=== PATIENT | female | born 1950 | race Caucasian/White ===

== ENCOUNTER → 2017-12-09 | Outpatient (CLI) | payer MEDICARE | LOC: MC.RAD 10:55 | DX: Z12.31 Encounter for screening mammogram for malignant neoplasm of breast (principal) ==

== ENCOUNTER → 2018-02-16 | Outpatient (CLI) | payer MEDICARE | LOC: COL.RAD 14:41 | DX: M65.242 Calcific tendinitis, left hand (principal); M19.042 Primary osteoarthritis, left hand; Z87.828 Personal history of other (healed) physical injury and trauma; Z98.890 Other specified postprocedural states ==

== ENCOUNTER → 2021-05-01 | Outpatient (CLI) | payer MEDICARE | LOC: MC.RAD 03-28 10:45 | DX: Z12.31 Encounter for screening mammogram for malignant neoplasm of breast (principal); N63.20 Unspecified lump in the left breast, unspecified quadrant ==

== ENCOUNTER 2023-07-23 08:29 | Outpatient (RCR) | payer MEDICARE | END 2023-08-09 | disposition home or self-care (01) | LOC: WSST | DX: R47.1 Dysarthria and anarthria (principal); C02.9 Malignant neoplasm of tongue, unspecified ==